=== PATIENT | male | born 1995 | race African-American/Black ===

== ENCOUNTER 2016-12-20 03:37 | Emergency (ER) | payer MEDICAID ==
[~2016-12-20] VITALS: Ht 182.9 cm; Wt 77.0 kg
[~2016-12-20 03:37] MED LIST: MIRA33502 PO; PEDI1CHW6 CHEW; PRIL20CA PO; ZYRT10TA12 PO
[2016-12-20 03:38] VITALS: BP 144/82; PULSE 104; RESP 16; TEMP 98.6; O2SAT 98
--- NOTE | 2016-12-20 05:34 | PD ---
HPI Chief Complaint: Fall Time Seen by Provider: 05:21 Travel History International Travel<30 days: No Contact w/Intl Traveler<30days: No Traveled to known affect area: No History of Present Illness HPI The patient is a 21-year-old after German male who presents to the emergency department for laceration to the posterior aspect of the head. The patient was dancing earlier tonight in a nightclub, [employer], when he slipped on a wet floor , falling backwards and striking his head on the hard ground. The patient thinks he cut his head on a sharp piece of glass that was lying on the floor. The patient is unsure if there was any loss of consciousness. He does complain of a headache but denies any nausea or vomiting. He denies any focal deficits. He denies taking any anticoagulants. Symptoms are moderate, exacerbated after falling, and there are no current alleviating factors. The patient states his tetanus shot is up-to-date. PFSH Past Medical History Narrative Medical GERD, allergies, constipation Diminished Hearing: No GERD: Yes Immunizations Current: Yes Migraines: Yes Tetanus Vaccination: Unknown Past Surgical History Narrative Surgical Exploratory abdominal surgery Abdominal Surgery: Yes (EXPLORITORY LAP) Social History Alcohol Use: No Tobacco Use: No Substance Use: No Allergies-Medications (Allergen,Severity, Reaction): Coded Allergies: bee venom protein (honey bee) (Verified Allergy, Mild, Swelling, 12/20/16) penicillin G (Unverified Allergy, Unknown, 12/20/16) Reported Meds & Prescriptions Reported Meds & Active Scripts Active Reported Flintstones Multivitamin (Multivitamins/Folic Acid/Vitamin C) 1 Tab Chew 1 Tab CHEW DAILY Miralax (Polyethylene Glycol) 255 Gm Powd 0.5 Capful PO DIRECTED PRN MIX 1/2 CAPFUL IN 4 OZ WATER (USE MEASURING CUP) Zyrtec (Cetirizine HCl) 10 Mg Tab 10 Mg PO DAILY Prilosec 20 mg (Omeprazole) 20 Mg Cap 20 Mg PO BID Review of Systems Except as stated in HPI: all other systems reviewed are Neg HENT: Positive: Headaches, No: Neck Pain Cardiovascular: No: Chest Pain or Discomfort Respiratory: No: Shortness of Breath Gastrointestinal: No: Nausea, Vomiting Neurologic: Positive: Headache, No: Change in Mentation, Paresthesia, Sensory Disturbance Physical Exam Narrative GENERAL: Awake, alert, pleasant 21-year-old male who appears his stated age and is in no acute respiratory distress. SKIN: Focused skin assessment warm/dry. HEAD: Patient has a 3 cm laceration of the superior left occipital region that is in a linear fashion. No active bleeding. EYES: Pupils equal and round. Pupils are 3 mm bilateral and reactive. EOMs are intact. ENT: No nasal bleeding or discharge. Mucous membranes pink and moist. NECK: Trachea midline. No JVD. No tenderness of the cervical vertebrae. MUSCULOSKELETAL: No obvious deformities. No clubbing. No cyanosis. No edema. NEUROLOGICAL: Awake and alert. No obvious cranial nerve deficits. Motor grossly within normal limits. Normal speech. Nonfocal. Oriented 4. Follows commands without difficulty. PSYCHIATRIC: Appropriate mood and affect; insight and judgment normal. Data Data Last Documented VS Vital Signs Date Time Temp Pulse Resp B/P (MAP) Pulse Ox O2 Delivery O2 Flow Rate FiO2 12/20/16 03:38 98.6 104 16 144/82 (102) 98 Room Air Orders Orders Ct Brain W/O Iv Contrast(Rout) (12/20/16 ) [facility] Medical Decision Making Medical Screen Exam Complete: Yes Emergency Medical Condition: Yes Medical Record Reviewed: Yes Interpretation(s) Last Impressions Head CT 12/20/16 0000 Signed Impressions: Service Date/Time: Tuesday, December 20, 2016 05:33 - CONCLUSION: Negative noncontrast CT brain. Quintin Jenkins MD Differential Diagnosis Differential diagnosis includes closed head injury, intracranial hemorrhage, skull fracture, laceration, contusion, hematoma. Narrative Course CT of the brain was obtained. The patient's laceration was repaired by the mid- level provider, please refer to the procedure note. CT of the brain is unremarkable. The patient is advised to have the shayna removed in 7 days. Wound care instructions. Return if symptoms worsen or progress. Diagnosis Primary Impression: Closed head injury Qualified Codes: S09.90XA - Unspecified injury of head, initial encounter Additional Impression: Laceration of scalp Qualified Codes: S01.01XA - Laceration without foreign body of scalp, initial encounter Patient Instructions: General Instructions Additional Instructions: Tylenol and/or Motrin as needed for pain. Staple removal in 7 days. Return if symptoms worsen or progress. Follow-up with a primary physician. Disposition: 01 DISCHARGE HOME Condition: Stable Prado,Levels Z. MD Dec 20, 2016 05:34
--- NOTE | 2016-12-20 05:43 | PD ---
Physical Exam Time Seen by Provider: 05:45 Data Data Last Documented VS Vital Signs Date Time Temp Pulse Resp B/P (MAP) Pulse Ox O2 Delivery O2 Flow Rate FiO2 12/20/16 03:38 98.6 104 16 144/82 (102) 98 Room Air Orders Orders Ct Brain W/O Iv Contrast(Rout) (12/20/16 ) MDM Medical Record Reviewed: Yes Supervised Visit with ANGY: No Procedures Procedure Narrative LACERATION LOCATION: Left parietal scalp LENGTH: 1 cm NUMBER OF STITCHES/SHAYNA: [1 staple REPAIR: The area of the laceration was prepped with Betadine and sterilely draped. The wound was copiously irrigated and explored without evidence of foreign body, tendon injury or neurovascular injury. The wound was closed using shayna. This was a [single layer repair. A sterile dressing was applied. The patient was advised to keep the dressing clean and dry. Patient tolerated the procedure well. Diagnosis Primary Impression: Closed head injury Qualified Codes: S09.90XA - Unspecified injury of head, initial encounter Additional Impression: Laceration of scalp Qualified Codes: S01.01XA - Laceration without foreign body of scalp, initial encounter Condition: Stable JanellSelenaLizbetmarcin HALL Dec 20, 2016 05:43
--- NOTE | 2016-12-20 05:57 | RADRPT ---
EXAM DATE/TIME: 12/20/2016 05:33 [facility] COMPARISON: No previous studies available for comparison. INDICATIONS : Trauma; patient slipped and fell. Small laceration. (stapled prior to scan) RADIATION DOSE: 56.35 CTDIvol (mGy) MEDICAL HISTORY : None SURGICAL HISTORY : None. ENCOUNTER: Initial ACUITY: 1 day PAIN SCALE: 4/10 LOCATION: cranial TECHNIQUE: Multiple contiguous axial images were obtained of the head. Using automated exposure control and adj ustment of the mA and/or kV according to patient size, radiation dose was kept as low as reasonably a chievable to obtain optimal diagnostic quality images. DICOM format image data is available electro nically for review and comparison. FINDINGS: CEREBRUM: The ventricles are normal for age. No evidence of midline shift, mass lesion, hemorrhage or acute in farction. No extra-axial fluid collections are seen. POSTERIOR FOSSA: The cerebellum and brainstem are intact. The 4th ventricle is midline. The cerebellopontine angle i s unremarkable. EXTRACRANIAL: The visualized portion of the orbits is intact. SKULL: Metallic staple at site of left mid occipital scalp laceration repair. The calvaria is intact. No e vidence of skull fracture. CONCLUSION: Negative noncontrast CT brain. Quintin Jenkins MD on December 20, 2016 at 5:54 Board Certified Radiologist. This report was verified electronically.
== END 2016-12-20 06:34 | disposition home or self-care (01) ==
LOC: NEPC 03:37
DX: S01.01XA Laceration without foreign body of scalp, initial encounter (principal); K21.9 Gastro-esophageal reflux disease without esophagitis; W01.0XXA Fall on same level from slipping, tripping and stumbling without subsequent striking against object, initial encounter; Y99.8 Other external cause status
CPT/HCPCS: 12001; 70450